=== PATIENT | male | born 1970 | race Caucasian/White ===

== ENCOUNTER 2017-10-29 19:59 | Emergency (ER) | payer OTHER ==
[2017-10-29 21:40] LABS: ABSOLUTE BASOPHILS # (AUTO) 0.1 10^3/uL (0.0-0.2); ABSOLUTE EOSINOPHILS # (AUTO) 0.2 10^3/uL (0.0-0.6); ABSOLUTE LYMPHOCYTES (AUTO) 2.6 10^3/uL (0.5-4.7); ABSOLUTE MONOCYTES (AUTO) 0.6 10^3/uL (0.1-1.4); BASOPHILS % (AUTO) 0.9 % (0-2); EOSINOPHILS % (AUTO) 2.9 % (0-6); HEMATOCRIT 42.5 % (37.9-51.0); LYMPHOCYTES % (AUTO) 30.3 % (13-45); MEAN CORPUSCULAR VOLUME 92 fl (80-97); MONOCYTES % (AUTO) 6.6 % (3-13); RED BLOOD COUNT 4.61 10^6/uL (4.35-5.55); RED CELL DISTRIBUTION WIDTH 13.7 % (11.5-14.0); SEGMENTED NEUTROPHILS % (AUTO) 59.3 % (42-78); WHITE BLOOD COUNT 8.5 10^3/uL (4.0-10.5)
--- NOTE | 2017-10-29 21:40 | ER Document Report ---
ED Syncope and Near Syncope - General Chief Complaint: Syncope Stated Complaint: HEAD INJURY/ DIZZINESS Time Seen by Provider: 10/29/17 21:21 Notes: Patient is a 47-year-old male comes emergency department for chief complaint of a syncopal episode. He states that he stood up, he became dizzy, states that he then blacked out, hit his head on the wall, and was unresponsive on the ground for about 15 seconds. He has a bump on his right forehead and a small skin laceration on his right cheek. Patient states that he has a headache, he reports that after he got to the emergency department and he was sitting that he became dizzy and nauseated but he did not vomit. He denies chest pain, shortness of breath, he denies any current symptoms other than pain in his neck and pain in his head. He smokes, denies any alcohol or recreational drugs. Past medical history of hyperlipidemia, GERD, denies any personal or family history of heart disease. - Related Data Allergies/Adverse Reactions: No Known Allergies Allergy (Unverified 10/29/17 20:51) Home Medications: Current Home Medications Aripiprazole [Abilify 10 mg Tablet] 0.5 tab PO DAILY 10/29/17 [History] Fluoxetine HCl 3 tab PO QAM 10/29/17 [History] Gabapentin 1 cap PO BID 10/29/17 [History] Gemfibrozil 1 tab PO BID 10/29/17 [History] Krill Oil/Byron-3/Dha/Epa [Byron-3 Krill Oil Softgel] 1 cap PO BID 10/29/17 [ History] Omeprazole 40 mg PO DAILY 10/29/17 [History] Past Medical History - General Information source: Patient - Social History Smoking Status: Current Every Day Smoker Chew tobacco use (# tins/day): No Smoking Education Provided: Yes - <3 min Frequency of alcohol use: Occasional Drug Abuse: None Lives with: Family Family History: Reviewed & Not Pertinent Patient has suicidal ideation: No Patient has homicidal ideation: No - Past Medical History Cardiac Medical History: Reports: Hx Hypercholesterolemia Renal/ Medical History: Denies: Hx Peritoneal Dialysis Past Surgical History: Reports: Hx Orthopedic Surgery - bursitis Review of Systems - Review of Systems Constitutional: No symptoms reported EENT: No symptoms reported Cardiovascular: See HPI Respiratory: No symptoms reported Gastrointestinal: No symptoms reported Genitourinary: No symptoms reported Male Genitourinary: No symptoms reported Musculoskeletal: No symptoms reported Skin: No symptoms reported Hematologic/Lymphatic: No symptoms reported Neurological/Psychological: No symptoms reported Physical Exam - Vital signs Vitals: Temp Pulse Resp BP Pulse Ox 99.0 F 91 20 156/82 H 95 10/29/17 20:06 10/29/17 20:06 10/29/17 20:06 10/29/17 20:06 10/29/17 20:06 Interpretation: Normal - General General appearance: Appears well, Alert - HEENT Head: Normocephalic. No: Atraumatic - Small hematoma over the right forehead area, tiny abrasion over the right cheek, otherwise unremarkable examination Eyes: Normal Conjunctiva: Normal Extraocular movements intact: Yes Eyelashes: Normal Pupils: PERRL Ears: Normal External canal: Normal Tympanic membrane: Normal Sinus: Normal Nasal: Normal Mouth/Lips: Normal Mucous membranes: Normal Pharynx: Normal Neck: Normal - Respiratory Respiratory status: No respiratory distress Chest status: Nontender Breath sounds: Normal. No: Decreased air movement, Wheezing Chest palpation: Normal - Cardiovascular Rhythm: Regular. No: Tachycardia Heart sounds: Normal auscultation, S1 appreciated, S2 appreciated Murmur: No - Abdominal Inspection: Normal Distension: No distension Bowel sounds: Normal Tenderness: Nontender. No: Tender, Guarding - Back Back: Tender - Mild generalized tenderness over the neck in both midline and paracervical regions, no ecchymosis, full range of motion, normal upper and lower extremity range of motion, strength, distal neurovascular exam. No saddle anesthesia. Remaining back is unremarkable.. No: CVA tenderness - Extremities General upper extremity: Normal inspection, Nontender, Normal ROM, Normal strength General lower extremity: Normal inspection, Nontender, Normal ROM, Normal strength - Neurological Neuro grossly intact: Yes Cognition: Normal Orientation: AAOx4 Frederick Coma Scale Eye Opening: Spontaneous [place] Coma Scale Verbal: Oriented Frederick Coma Scale Motor: Obeys Commands Frederick Coma Scale Total: 15 Speech: Normal Motor strength normal: LUE, RUE, LLE, RLE Sensory: Normal - Psychological Associated symptoms: Normal affect, Normal mood - Skin Skin Temperature: Warm Skin Moisture: Dry Skin Color: Normal Course - Re-evaluation Re-evalutation: EKG shows sinus rhythm with intraventricular conduction delay. Prolonged AR interval showing first-degree block. slightly widened QRS noted in the anterior leads but not on tracing. No delta wave, no evidence of Brugada. Patient has not had any chest pain. On monitoring here he has not had any noted abnormalities. No definite evidence of tachyarrhythmia. Patient did have syncope after standing and becoming lightheaded. He had dizziness and nausea earlier, as result because of unclear picture CAT scan of the head was performed and is negative, CAT scan of the neck is also negative despite reported neck pain. Generalized neck pain on exam, no neurological deficits on exam. Patient is alert, conversational, well-appearing. Given IV fluids, bicarbonate is 19, no hypoxia or evidence of respiratory abnormality. Normal orthostatic vital signs. Troponin is not elevated. Will cycle. Discussed with Dr. Oliver. No overt evidence of EKG abnormality suggesting tachyarrhythmia, patient's described symptoms actually suggest vasovagal syncope with secondary fall and injury. No chest pain, on reevaluation's patient is asymptomatic. He recommends cardiology consult and probable follow- up with cardiology outpatient. 10/30/17 23:[address] Mckeon. Discussed HPI, EKG, requested recommendations. Recommendation is for patient to have a very close outpatient follow-up, and he provided his cell phone number for patient to call. Orthostatic vital signs are normal. Cycled troponin hemolyzed. Patient states he cannot stay any longer, he states he is leaving now. I discussed all details of his workup, consultation, and recommendations. Patient states that he understands, that he will still follow-up with cardiology immediately, states that however he must still leave at this time. Because patient has not had any chest pain, symptoms most consistent with vasovagal syncope, and he is having a close cardiology follow-up, because patient states he will return if he develops any worsening symptoms (which were discussed) patient was discharged. - Vital Signs Vital signs: Temp Pulse Resp BP Pulse Ox 99.0 F 80 14 134/84 H 95 10/29/17 20:06 10/30/17 00:17 10/30/17 01:01 10/30/17 01:01 10/30/17 01:01 - Laboratory Result Diagrams: 10/29/17 21:20 10/29/17 21:20 Laboratory results interpreted by me: 10/29/17 10/29/17 21:20 22:15 Chloride 109 H Carbon Dioxide 19 L Glucose 115 H Direct Bilirubin 0.6 H AST 74 H Urine Blood SMALL H Discharge - Discharge Clinical Impression: Episode of syncope Qualifiers: Syncope type: unspecified Qualified Code(s): R55 - Syncope and collapse Head injury Qualifiers: Encounter type: initial encounter Qualified Code(s): S09.90XA - Unspecified injury of head, initial encounter Condition: Stable Disposition: HOME, SELF-CARE Additional Instructions: Your EKG is abnormal, however your workup otherwise normal except for some evidence of dehydration. Because of the syncopal episode and your EKG I spoke to Dr. Mckeon, Cardiology, he can be reached at cell phone [phone] where you can call tomorrow for follow-up. You need a very close cardiology follow-up for further evaluation and management. Return if you develop any concerning symptoms including chest pain, shortness of breath, passing out again, or any other concerning symptoms. Also see head injury precautions listed below. At this point, there is no evidence that your head injury is serious. Observation is necessary, however. Take only clear liquids for the first few hours, unless told otherwise by the doctor. If no pain medication was prescribed, you may take acetaminophen according to the directions on the bottle. Do not take any medication that may alter your level of alertness (unless you've discussed it with the doctor first) . Limit activity for the first 24 hours. Bed rest is best. During the first 24 hours, check to see approximately every two to three hours that the patient is easily arousable, responds normally, and can perform common tasks such as walking without difficulty. Contact your doctor or go to the hospital if any of the following things occur: Persistent vomiting, difficulty in arousing the patient, worsening or continued headache, or failure to improve as expected. Head injuries can cause symptoms that persist for a few days or even a few weeks.
[2017-10-29 21:50] LABS: ALANINE AMINOTRANSFERASE 68 U/L (21-72); ALBUMIN 4.6 g/dL (3.5-5.0); ALKALINE PHOSPHATASE 99 U/L (38-126); ANION GAP 15 (5-19); ASPARTATE AMINO TRANSFERASE 74 U/L (17-59); BILIRUBIN,DIRECT 0.6 mg/dL (0.0-0.4); BILIRUBIN,TOTAL 0.8 mg/dL (0.2-1.3); BLOOD UREA NITROGEN 19 mg/dL (7-20); CARBON DIOXIDE 19 mmol/L (22-30); CHLORIDE 109 mmol/L (98-107); CREATINE KINASE 157 U/L (55-170); CREATININE RESULT 0.95 mg/dL (0.52-1.25); GLUCOSE 115 mg/dL (75-110); POTASSIUM 4.8 mmol/L (3.6-5.0); SODIUM 143.2 mmol/L (137-145); TOTAL PROTEIN 7.8 g/dL (6.3-8.2)
[2017-10-29 22:00] LABS: HEMOGLOBIN 14.4 g/dL (13.5-17.0); HGB HCT DIFFERENCE 0.7; MEAN CORPUSCULAR HEMOGLOBIN 31.1 pg (27.0-33.4); MEAN CORPUSCULAR HGB CONC 33.6 g/dL (32.0-36.0)
[2017-10-29 22:02] LABS: TROPONIN I 0.016 ng/mL
[2017-10-29 22:04] LABS: CALCIUM 10.2 mg/dL (8.4-10.2)
--- NOTE | 2017-10-29 22:07 | RADIOLOGY REPORT (SQ) ---
EXAM DESCRIPTION: CT HEAD WITHOUT COMPLETED DATE/TIME: 10/29/2017 9:50 pm REASON FOR STUDY: head injury, nausea, dizziness COMPARISON: None. TECHNIQUE: Axial images acquired through the brain without intravenous contrast. Images reviewed wi th bone, brain and subdural windows. Images stored on PACS. All CT scanners at this facility use dose modulation, iterative reconstruction, and/or weight based d osing when appropriate to reduce radiation dose to as low as reasonably achievable (ALARA). [facility]: Dose Right [facility]: CareDose [facility]: Dose Right [facility]: Teradose 4D [facility]: Smart [facility]. RADIATION DOSE: CT Rad equipment meets quality standard of care and radiation dose reduction techniq ues were employed. CTDIvol: 64.6 mGy. DLP: 1292 mGy-cm. mGy. LIMITATIONS: None. FINDINGS: VENTRICLES: Normal size and contour. CEREBRUM: No masses. No hemorrhage. No midline shift. No evidence for acute infarction. Normal gra y/white matter differentiation. No areas of low density in the white matter. CEREBELLUM: No masses. No hemorrhage. No alteration of density. No evidence for acute infarction. EXTRAAXIAL SPACES: No fluid collections. No masses. ORBITS AND GLOBE: No intra- or extraconal masses. Normal contour of globe without masses. CALVARIUM: No fracture. PARANASAL SINUSES: No fluid or mucosal thickening. SOFT TISSUES: No mass or hematoma. OTHER: No other significant finding. IMPRESSION: No acute intracranial findings. EVIDENCE OF ACUTE STROKE: NO. COMMENT: Quality ID # [id number]: Final reports with documentation of one or more dose reduction techniques (e.g., Automated exposure control, adjustment of the mA and/or kV according to patient size, use of iterative reconstruction technique) TECHNICAL DOCUMENTATION: JOB ID: [id number] [place]-72 2010 [employer]- All Rights Reserved
[2017-10-29 22:09] LABS: CREATINE KINASE MB 0.91 ng/mL (<4.55)
--- NOTE | 2017-10-29 22:33 | RADIOLOGY REPORT (SQ) ---
EXAM DESCRIPTION: CT CERVICAL SPINE WITHOUT COMPLETED DATE/TIME: 10/29/2017 9:52 pm REASON FOR STUDY: fall, head injury, pain COMPARISON: None. TECHNIQUE: Axial images acquired through the cervical spine without intravenous contrast. Images re viewed with lung, soft tissue and bone windows. Reconstructed coronal and sagittal MPR images review ed. Images stored on PACS. All CT scanners at this facility use dose modulation, iterative reconstruction, and/or weight based d osing when appropriate to reduce radiation dose to as low as reasonably achievable (ALARA). [facility]: Dose Right [facility]: CareDose [facility]: Dose Right [facility]: Teradose 4D [facility]: [employer] RADIATION DOSE: CT Rad equipment meets quality standard of care and radiation dose reduction techniq ues were employed. CTDIvol: 19.6 mGy. DLP: 396 mGy-cm. mGy. LIMITATIONS: None. FINDINGS: ALIGNMENT: Anatomic. MINERALIZATION: Normal. VERTEBRAL BODIES: No fractures or dislocation. DISCS: Mild degenerative disc disease at the C5-6 and C6-7 levels. FACETS, LATERAL MASSES, POSTERIOR ELEMENTS: No fractures. No dislocation. No acute findings. HARDWARE: None in the spine. VISUALIZED RIBS: No fractures. LUNG APICES AND SOFT TISSUES: No significant or acute findings. OTHER: No other significant finding. IMPRESSION: NO ACUTE FINDINGS IN THE CERVICAL SPINE. TECHNICAL DOCUMENTATION: JOB ID: [id number] [place]-72 Quality ID # [id number]: Final reports with documentation of one or more dose reduction techniques (e.g., Au tomated exposure control, adjustment of the mA and/or kV according to patient size, use of iterative reconstruction technique) 2010 [employer]- All Rights Reserved
[2017-10-29 22:53] LABS: APPEARANCE,URINE CLEAR; BILIRUBIN,URINE NEGATIVE (NEGATIVE); GLUCOSE, URINE NEGATIVE (NEGATIVE); KETONES,URINE NEGATIVE (NEGATIVE); LEUKOCYTE ESTERASE,URINE NEGATIVE (NEGATIVE); NITRITE,URINE NEGATIVE (NEGATIVE); PROTEIN,URINE NEGATIVE (NEGATIVE); URINE SPECIFIC GRAVITY 1.026; UROBILINOGEN,URINE NEGATIVE mg/dL (<2.0)
--- NOTE | 2017-10-29 23:12 | RADIOLOGY REPORT (SQ) ---
EXAM DESCRIPTION: CHEST SINGLE VIEW COMPLETED DATE/TIME: 10/29/2017 9:55 pm REASON FOR STUDY: dizzy, nausea, syncope COMPARISON: None. EXAM PARAMETERS: NUMBER OF VIEWS: One view. TECHNIQUE: Single frontal radiographic view of the chest acquired. RADIATION DOSE: NA LIMITATIONS: None. FINDINGS: LUNGS AND PLEURA: No opacities, masses or pneumothorax. No pleural effusion. MEDIASTINUM AND HILAR STRUCTURES: No masses. Contour normal. HEART AND VASCULAR STRUCTURES: Heart normal in size. Normal vasculature. BONES: No acute findings. HARDWARE: None in the chest. OTHER: No other significant finding. IMPRESSION: NO ACUTE RADIOGRAPHIC FINDING IN THE CHEST. TECHNICAL DOCUMENTATION: JOB ID: [id number] [place]-72 2010 [employer]- All Rights Reserved
[2017-10-29] MEDS ORDERED: NORMAL SALINE 1000 ML 1,000 ML IV ONE (23:43)
[2017-10-30 01:41] VITALS: BP 134/84
--- NOTE | 2017-10-30 07:51 | EKG REPORT ---
SEVERITY:- ABNORMAL ECG - SINUS RHYTHM FIRST DEGREE AV BLOCK RIGHT BUNDLE BRANCH BLOCK : Confirmed by: Jonnathan Lanier MD 30-Oct-2017 07:50:48
== END 2017-10-30 01:41 | disposition home or self-care (01) ==
LOC: ER 19:59
DX: R55 Syncope and collapse (principal); S00.83XA Contusion of other part of head, initial encounter; W18.39XA Other fall on same level, initial encounter; Y93.89 Activity, other specified; R51 Headache; R11.0 Nausea; M54.2 Cervicalgia; F17.200 Nicotine dependence, unspecified, uncomplicated; Z71.6 Tobacco abuse counseling; I44.0 Atrioventricular block, first degree
CPT/HCPCS: 36415; 70450; 71010; 72125; 80053; 81001; 82550; 82553; 84484; 85025; 93005; 93010; 99285